=== PATIENT | female | born 1990 | race American Indian/Alaskan Native ===

== ENCOUNTER 2018-01-01 08:31 | Outpatient (CLI) | payer MEDICAID ==
[2018-01-01] MEDS ORDERED: LACTATED RINGERS 500 ML IV ONE (08:46)
[2018-01-01 09:16] VITALS: BP 115/68
[2018-01-01] MEDS ORDERED: ZOFRAN IV ONE ×3 (09:44→10:00)
[2018-01-01 09:52] LABS: Hemoglobin 11.6 gm/dl (10.1-14.3); Mean Corpuscular HGB Conc 34 % (30-34); Mean Corpuscular Hemoglobin 30 pg (28-32); Mean Corpuscular Volume 87 fl (79-97); Platelet Count 170 K/mm3 (140-440)
[2018-01-01 09:59] LABS: Bilirubin,Urine NEG (Negative); Blood,Urine NEG (Negative); Color,Urine Amber (Yellow); Mucus,Urine 3+ /HPF
[2018-01-01] MEDS ORDERED: NACL 0.9% IV ONE ×2 (10:00)
[2018-01-01 10:10] LABS: Alanine Aminotransferase 10 units/L (7-56); Albumin 3.5 g/dL (3.9-5); BUN/Creatinine Ratio 18; Blood Urea Nitrogen 7 mg/dL (7-17); Calcium 8.9 mg/dL (8.4-10.2); Hemolysis Index 0; Lipase 19 units/L (13-60)
[2018-01-01] MEDS ORDERED: LACTATED RINGERS 1,000 ML ONE (11:19)
[2018-01-01] MEDS ORDERED: REGLAN PO ONE (11:43)
--- NOTE | 2018-01-01 13:08 | Event Note ---
Date: 01/01/18 Per RN, patient feels better after Zofran and Reglan, states N/V started after she began taking PCN for toothache. Labs reviewed, will allow home, instrd RN to have patient start clear liquids today then BRAT diet tomorrow. To contact her dentist re: [facility], strip unable to be viewed at this time Cat 1 per RN
== END 2018-01-01 13:22 | disposition home or self-care (01) ==
LOC: TRG 08:31
PROVIDERS: ATTEND Obstetrics & Gynecology
DX: O47.03 False labor before 37 completed weeks of gestation, third trimester (principal); Z3A.32 32 weeks gestation of pregnancy
CPT/HCPCS: 36415; 59025; 80053; 81001; 82150; 83690; 85027; 96360; 96361; 96374; J2405; J7120

== ENCOUNTER 2018-02-07 22:50 | Outpatient (CLI) | payer MEDICAID ==
[2018-02-08 00:04] VITALS: BP 116/74
== END 2018-02-08 00:30 | disposition home or self-care (01) ==
LOC: TRG 22:50
PROVIDERS: ATTEND Obstetrics & Gynecology
DX: O62.8 Other abnormalities of forces of labor (principal); Z3A.37 37 weeks gestation of pregnancy
CPT/HCPCS: 59025